=== PATIENT | male | born 1960 | race Caucasian/White ===

== ENCOUNTER → 2020-12-01 | Outpatient (CLI) | payer BC | LOC: KOH-I 10:52 | DX: M51.16 Intervertebral disc disorders with radiculopathy, lumbar region (principal); M47.26 Other spondylosis with radiculopathy, lumbar region | CPT/HCPCS: 72131 ==

== ENCOUNTER → 2021-04-07 | Outpatient (CLI) | payer BC ==
[~2021-04-07] MED LIST: ACYCLOVIR400 MG PO; COMBIVENT; CYMBALTA60 MG PO; ECOTRIN81 MG PO; FENOFIBRATE160 MG PO; FLOMAX 0.4 MG0.4 MG PO; JARDIANCE25 MG PO; LOSARTAN; METFORMIN HCL1000 MG PO; METHOTREXATE; METOPROLOL TART25 MG PO; NORVASC10 MG PO; OMEPRAZOLE20 MG PO; PROAIR; TRELEGY IH; TRULICITY; VITAMIN C
[2021-04-07 11:08] LABS: RED BLOOD COUNT 4.97 M/UL (4.20-5.50); WHITE BLOOD COUNT 9.7 K/UL (4.5-11.0)
[2021-04-07 11:54] LABS: BUN/CREATININE RATIO 13 (0-10)
== END ==
LOC: OPSV2 09:00 → EDSTATUS 09:00 → OPSV2 09:21
PROVIDERS: Orthopaedic Surgery
DX: Z01.818 Encounter for other preprocedural examination (principal); M48.061 Spinal stenosis, lumbar region without neurogenic claudication; M54.16 Radiculopathy, lumbar region
CPT/HCPCS: 36415; 71046; 80048; 81001; 83036; 85027; 85610; 85730; 87081; 93005

== ENCOUNTER 2021-04-20 05:21 | Inpatient (IN) | payer BC ==
[~2021-04-20] VITALS: Ht 177.8 cm; Wt 121.8 kg
[~2021-04-20 05:21] MED LIST changes: -ACYCLOVIR400 MG PO; -COMBIVENT; -LOSARTAN; -METHOTREXATE; -PROAIR; -TRELEGY IH; -TRULICITY; -VITAMIN C
[2021-04-20 15:03] LABS: HEMOGLOBIN 12.9 gm/dl (14.0-17.5); WHITE BLOOD COUNT 15.6 K/UL (4.5-11.0)
[2021-04-20 15:35] LABS: BUN/CREATININE RATIO 14 (0-10)
[2021-04-21 05:11] LABS: HEMOGLOBIN 11.5 gm/dl (14.0-17.5); RED BLOOD COUNT 3.74 M/UL (4.20-5.50); WHITE BLOOD COUNT 12.6 K/UL (4.5-11.0)
[2021-04-21 05:26] LABS: BUN/CREATININE RATIO 13 (0-10)
[2021-04-21] MEDS ORDERED: ACYCLOVIR400 MG PO (10:19)
[2021-04-21] MEDS ORDERED: PROAIR DIGIHAL90 MCG INH (10:20)
[2021-04-21] MEDS ORDERED: TRULICITY3 MG/0.5 M INJ (10:21)
[2021-04-21] MEDS ORDERED: TRELEGY ELLIPT1 EACH INH (10:24)
[2021-04-21] MEDS ORDERED: COMBIVENT RESPIM4 GM INH (10:24)
[2021-04-21] MEDS ORDERED: METHOTREXATE T2.5 MG PO (10:28)
[2021-04-21] MEDS ORDERED: VITAMIN C 500500 MG PO (10:29)
[2021-04-21] MEDS ORDERED: LOSARTAN POTAS100 MG PO (10:34)
[2021-04-21] MEDS ORDERED: ZYRTEC10 MG PO (10:38)
[2021-04-21] MEDS ORDERED: DAILY VALUE1 EACH PO (10:38)
[2021-04-21] MEDS ORDERED: PROBIOTIC1 EAC1 PO (10:39)
[2021-04-21] MEDS ORDERED: CINNAMON500 MG PO (10:39)
[2021-04-21] MEDS ORDERED: SUGAR BLOCKER PO (10:41)
[2021-04-22 04:56] LABS: HEMOGLOBIN 12.2 gm/dl (14.0-17.5); RED BLOOD COUNT 3.77 M/UL (4.20-5.50)
[2021-04-22 05:16] LABS: BUN/CREATININE RATIO 15 (0-10)
[2021-04-23 05:11] LABS: HEMOGLOBIN 11.8 gm/dl (14.0-17.5); RED BLOOD COUNT 3.69 M/UL (4.20-5.50)
[2021-04-23 05:43] LABS: BUN/CREATININE RATIO 12 (0-10)
--- NOTE | 2021-04-23 13:37 | NUR ---
02 SAT DOWN TO 87% ROOM AIR WHILE PATIENT SLEEPING. NOTIFIED DR. RAO ORDERS NOTED
== END 2021-04-23 14:38 | disposition home or self-care (01) | DRG 460 ==
LOC: OR 05:21 → CCU 18:41 → OR 18:42 → CCU 18:42 → M/S 04-21 16:17
PROVIDERS: ADMIT Orthopaedic Surgery
PROC: 0SG1071 Fusion of 2 or more Lumbar Vertebral Joints with Autologous Tissue Substitute, Posterior Approach, Posterior Column, Open Approach (ICD-10-PCS; principal; 2021-04-20 07:30)
PROC: 4A11X4G Monitoring of Peripheral Nervous Electrical Activity, Intraoperative, External Approach (ICD-10-PCS; 2021-04-20 07:30)
DX: M96.0 Pseudarthrosis after fusion or arthrodesis (principal); M47.896 Other spondylosis, lumbar region; Z20.822 Contact with and (suspected) exposure to COVID-19; M48.061 Spinal stenosis, lumbar region without neurogenic claudication; M19.90 Unspecified osteoarthritis, unspecified site; E11.9 Type 2 diabetes mellitus without complications; E78.00 Pure hypercholesterolemia, unspecified; M54.16 Radiculopathy, lumbar region; I10 Essential (primary) hypertension; J45.909 Unspecified asthma, uncomplicated; Z87.01 Personal history of pneumonia (recurrent); Z88.8 Allergy status to other drugs, medicaments and biological substances
CPT/HCPCS: 36415; 72100; 72110; 76000; 80048; 82962; 85027; 94640; 94664; 94760; 97116-GP-CQ; 97161; 97166; C1713; C1762; C1781; J0690; J1040; J1170; J1650; J2001; J2250; J2370; J2704; J2710; J3010; J3370; J7030; J7040; J7120; P9045

== ENCOUNTER → 2021-09-07 | Outpatient (CLI) | payer BC ==
[~2021-09-07] MED LIST changes: +ACYCLOVIR400 MG PO; +CINNAMON500 MG PO; +COMBIVENT RESPIM4 GM INH; +DAILY VALUE1 EACH PO; +LOSARTAN POTAS100 MG PO; +METHOTREXATE T2.5 MG PO; +PROAIR DIGIHAL90 MCG INH; +PROBIOTIC1 EAC1 PO; +SUGAR BLOCKER PO; +TRELEGY ELLIPT1 EACH INH; +TRULICITY3 MG/0.5 M INJ; +VITAMIN C 500500 MG PO; +ZYRTEC10 MG PO
== END ==
LOC: MRI 13:50
DX: M54.16 Radiculopathy, lumbar region (principal); Z98.1 Arthrodesis status
CPT/HCPCS: 36415; 72158; 82565; 84520; A9577

== ENCOUNTER → 2022-01-13 | Outpatient (CLI) | payer BC | LOC: KOH-I 14:54 | DX: M50.122 Cervical disc disorder at C5-C6 level with radiculopathy (principal); M40.50 Lordosis, unspecified, site unspecified; Z98.1 Arthrodesis status | CPT/HCPCS: 72141 ==